=== PATIENT | male | born 1990 | race Caucasian/White ===

== ENCOUNTER 2019-03-08 01:57 | Emergency (ER) | payer OTHER ==
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
[2019-03-08] MEDS ORDERED: IBUPROFEN 600 MG TABLET (FP) PO ONE (02:30)
[2019-03-08 02:31] VITALS: BP 110/80; PULSE 80; TEMP 98.3; BMI 28.5
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
== END 2019-03-08 02:45 | disposition home or self-care (01) ==
LOC: JER 01:57
DX: S39.012A Strain of muscle, fascia and tendon of lower back, initial encounter (principal); M25.561 Pain in right knee; Y35.811A Legal intervention involving manhandling, law enforcement official injured, initial encounter; Y93.89 Activity, other specified; Y92.414 Local residential or business street as the place of occurrence of the external cause; Y99.0 Civilian activity done for income or pay
CPT/HCPCS: 99281-25

== ENCOUNTER 2019-06-18 03:08 | Emergency (ER) | payer OTHER ==
[2019-06-18 03:42] VITALS: BP 124/81; PULSE 102; TEMP 98.1; BMI 29.8
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
== END 2019-06-18 04:38 | disposition home or self-care (01) ==
LOC: JER 03:08
DX: M25.521 Pain in right elbow (principal); M25.532 Pain in left wrist; X58.XXXA Exposure to other specified factors, initial encounter; Y35.91XA Legal intervention, means unspecified, law enforcement official injured, initial encounter; Y92.410 Unspecified street and highway as the place of occurrence of the external cause; Y99.0 Civilian activity done for income or pay
CPT/HCPCS: 73070-TC-RT-FY; 73110-TC-LT-FY; 73130-TC-LT-FY; 99282-25

== ENCOUNTER 2019-06-20 09:11 | Emergency (ER) | payer OTHER ==
[2019-06-20 09:33] VITALS: BP 164/77; PULSE 62; TEMP 97.8; BMI 29.8
[2019-06-20] MEDS ORDERED: SODIUM CHLORIDE 1,000 ML IV STA (09:50)
[2019-06-20] MEDS ORDERED: METOCLOPRAMIDE HCL INJECTION 10 MG/2 ML VIAL IVPB ONE (09:50)
[2019-06-20] MEDS ORDERED: ACETAMINOPHEN 1000 MG/100 ML VIAL (NON FORMULARY) IVPB ONE (09:50)
[2019-06-20] MEDS ORDERED: METOCLOPRAMIDE HCL INJECTION 10 MG/2 ML VIAL ONE (09:51)
[2019-06-20] MEDS ORDERED: ACETAMINOPHEN INJECTION 100 ML IVPB ONE (09:55)
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
== END 2019-06-20 11:22 | disposition home or self-care (01) ==
LOC: JERFT 09:11
PROC: 3E033NZ Introduction of Analgesics, Hypnotics, Sedatives into Peripheral Vein, Percutaneous Approach (ICD-10-PCS; principal; 2019-06-20)
PROC: 3E033GC Introduction of Other Therapeutic Substance into Peripheral Vein, Percutaneous Approach (ICD-10-PCS; 2019-06-20)
DX: S06.0X0A Concussion without loss of consciousness, initial encounter (principal); X58.XXXA Exposure to other specified factors, initial encounter; Y35.891A Legal intervention involving other specified means, law enforcement official injured, initial encounter; Y93.89 Activity, other specified; Y92.89 Other specified places as the place of occurrence of the external cause; Y99.0 Civilian activity done for income or pay
CPT/HCPCS: 70450-TC; 99282-25; J0131; J7030